=== PATIENT | male | born 1995 | race Caucasian/White ===

== ENCOUNTER 2025-06-30 19:25 | Emergency (ER) | payer SELFPAY ==
[~2025-06-30] VITALS: Ht 172.7 cm; Wt 91.1 kg
[2025-06-30 19:31] VITALS: O2SAT 100
[2025-06-30 19:52] VITALS: BP 133/93; PULSE 103; RESP 16; TEMP 37.1; O2SAT 100
== END 2025-06-30 21:42 | disposition left against medical advice (07) ==
LOC: ER 19:25
DX: M54.2 Cervicalgia (principal); Z53.21 Procedure and treatment not carried out due to patient leaving prior to being seen by health care provider